=== PATIENT | female | born 1995 | race Caucasian/White ===

== ENCOUNTER → 2016-10-11 | Outpatient (CLI) | payer BC ==
--- NOTE | 2016-10-13 08:00 | DX ---
DEXA Bone Densitometry Technique: DEXA scan was performed on [employer] [facility] W Bone Densitometer Indication: Special screening examination Comparator Study: None Results: Lumbar Spine BMD: 1.132 T-score: +0.8 Total Hip (Right) BMD: 1.062 T-score: +1.0 Femoral Neck (Right) BMD: 0.890 T-score: +0.4 Total Hip (Left) BMD: 1.038 T-score: +0.8 Femoral Neck (Left) BMD: 0.907 T-score: +0.5 CONCLUSION: Normal bone mineral density ADDITIONAL COMMENTS: Consider repeating the study in 3-4 years of clinically indicated NOTE: The risk of osteoporotic fractures increases approximately twofold for each 1.0 SD decrease in T-score. The T-score represents the standard deviations from a young normal, same sex, reference po pulation. Low bone density is not the only risk factor for fracture. Clinical factors to consider include fall risk, previous osteoporotic fractures, family history of fractures, smoking, and low body weight. Patients who have an unexpectedly low BMD may need to be evaluated for secondary causes of low bone m ineral density. In comparing the present study to a prior study, lack of a significant increase or decrease in BMD ma y signify efficacy of the patient's present treatment. Bone mineral density measurements performed with densitometers produced by different manufacturers ar e not comparable. For the most reproducible BMD measurement, subsequent exams should be performed on the same densitometer.
== END ==
LOC: BMCIMAGING 15:14
PROVIDERS: ATTEND Family Medicine
DX: Z13.820 Encounter for screening for osteoporosis (principal); F50.9 Eating disorder, unspecified

== ENCOUNTER 2017-05-31 01:53 | Observation (INO) | payer BC ==
[2017-05-31] MEDS ORDERED: NS 1,000 ML IV ONE (02:12)
--- NOTE | 2017-05-31 02:17 | EDPHY ---
H & P Stated Complaint: last BM 1 week ago, saw pcp 05/30, 3 suppositories & mag citrate no results Time Seen by Provider: 05/31/17 02:04 HPI/ROS: Chief Complaint: Constipation HPI: 22-year-old woman with a history of irritable bowel syndrome, constipation and anorexia is presenting with abdominal distention and constipation. Patient states that her last normal bowel movement was a week ago. She did drink a bottle of magnesium citrate without relief. She is also use multiple glycerin suppositories without relief. She has a history of similar episode 3 years ago which resolved after several ER visits in using enemas. Denies any nausea or vomiting. States she has been having with her anorexia and has been decreasing her oral intake recently. ROS: 10 point Review of Systems is negative except as noted in the HPI. PMH: Constipation, anorexia nervosa Medications: Lamictal, naltrexone Social History: No smoking, no alcohol, no recreational drug use Family History: non-contributory Physical Exam: Gen: Awake, Alert, No Distress HEENT: Nose: no rhinorrhea Eyes: PERRLA, EOMI Mouth: Moist mucosa Neck: Supple, no JVD Chest: nontender, lungs clear to auscultation Heart: S1, S2 normal, no murmur Abd: Soft, distended, nontender, no guarding Back: no CVA tenderness, no midline tenderness Ext: no edema, non-tender Skin: no rash Neuro: CN II-XII intact, Sensation grossly intact, Strength 5/5 in bilateral upper and lower extremities - Personal History LMP (Females 10-55): Now Current Tetanus Diphtheria and Acellular Pertussis (TDAP): Yes Tetanus Vaccine Date: < 10 years - Medical/Surgical History Hx Asthma: Yes Hx Chronic Respiratory Disease: No Hx Diabetes: No Hx Cardiac Disease: No Hx Renal Disease: No Hx Cirrhosis: No Hx Alcoholism: No Hx HIV/AIDS: No Hx Splenectomy or Spleen Trauma: No Other PMH: eating disorder: anorexia, depression, anxiety, chronic sinusitis, chronic constipation - Social History Smoking Status: Never smoked Constitutional: Initial Vital Signs Temperature (C) 36.8 C 05/31/17 01:56 Heart Rate 73 05/31/17 01:56 Respiratory Rate 18 05/31/17 01:56 Blood Pressure 120/80 05/31/17 01:56 O2 Sat (%) 97 05/31/17 01:56 O2 Delivery Mode Room Air Allergies/Adverse Reactions: No Known Allergies Allergy (Unverified 02/29/16 13:36) Home Medications: Medication Instructions Recorded Hydroxycut Otc 05/31/17 LaMICtal 05/31/17 Linzess 05/31/17 Naltrexone HCl 05/31/17 Medical Decision Making - Diagnostics Imaging Results: Abdominal x-ray shows multiple air-fluid levels an dilated bowel consistent with obstruction. Imaging: I viewed and interpreted images myself ED Course/Re-evaluation: Abdominal x-ray shows multiple air-fluid levels consistent with obstruction. Will obtain a CT scan. Labs are normal. She is not . CT scan of the abdomen pelvis shows dilated GI system from the stomach down through to her rectum. There is anterior air-fluid levels. There is markedly dilated stomach. There is fluid in the small bowel. There is no point of obstruction. It is more of an ileus pattern per Dr. Rodriguez. Case discussed with Dr. Gates, general surgery. He is consulted. He will continue follow-up. He agrees with plan for admission to Medicine for further GI workup. He is wondering whether might be a here shows component to this. Case discussed with Dr. Valero, hospitalist. He will admit to his service. NG tube to be placed. - Data Points Laboratory Results: Laboratory Results 05/31/17 02:17 05/31/17 02:17 05/31/17 05/31/17 05/31/17 02:17 02:17 02:17 WBC 5.04 10^3/uL 10^3/uL (3.80-9.50) RBC 4.29 10^6/uL 10^6/uL (4.18-5.33) Hgb 13.9 g/dL g/dL (12.6-16.3) Hct 42.5 % % (38.0-47.0) MCV 99.1 fL fL (81.5-99.8) MCH 32.4 pg pg (27.9-34.1) MCHC 32.7 g/dL g/dL (32.4-36.7) RDW 13.2 % % (11.5-15.2) Plt Count 211 10^3/uL 10^3/uL (150-400) MPV 12.8 fL H fL (8.7-11.7) Neut % (Auto) 41.9 % % (39.3-74.2) Lymph % (Auto) 44.6 % % (15.0-45.0) [place] % (Auto) 10.1 % % (4.5-13.0) Eos % (Auto) 2.0 % % (0.6-7.6) Baso % (Auto) 1.2 % % (0.3-1.7) Nucleat RBC Rel Count 0.0 % % (0.0-0.2) Absolute Neuts (auto) 2.11 10^3/uL 10^3/uL (1.70-6.50) Absolute Lymphs (auto) 2.25 10^3/uL 10^3/uL (1.00-3.00) Absolute Monos (auto) 0.51 10^3/uL 10^3/uL (0.30-0.80) Absolute Eos (auto) 0.10 10^3/uL 10^3/uL (0.03-0.40) Absolute Basos (auto) 0.06 10^3/uL 10^3/uL (0.02-0.10) Absolute Nucleated RBC 0.00 10^3/uL 10^3/uL (0-0.01) Immature Gran % 0.2 % % (0.0-1.1) Immature Gran # 0.01 10^3/uL 10^3/uL (0.00-0.10) Sodium 143 mEq/L mEq/L (134-144) Potassium 3.9 mEq/L mEq/L (3.5-5.2) Chloride 103 mEq/L mEq/L (97-110) Carbon Dioxide 29 mEq/l mEq/l (22-31) Anion Gap 11 mEq/L mEq/L (8-16) BUN 13 mg/dL mg/dL (7-23) Creatinine 0.8 mg/dL mg/dL (0.6-1.0) Estimated GFR > 60 Glucose 84 mg/dL mg/dL (70-100) Calcium 9.6 mg/dL mg/dL (8.5-10.4) Beta HCG, Qual NEGATIVE Medications Given: Discontinued Medications Sodium Chloride (Ns) 1,000 mls @ 0 mls/hr IV ONCE ONE; Wide Open PRN Reason: Protocol Stop: 05/31/17 02:13 Last Admin: 05/31/17 02:20 Dose: 1,000 mls Departure - Departure Disposition: [facility] Acute Clinical Impression: Ileus Condition: Fair Referrals: Brigitte Montoya MD [Primary Care Provider] - As per Instructions
[2017-05-31 02:24] LABS: % IMMATURE GRANULYOCYTES 0.2 % (0.0-1.1); ABSOLUTE IMMATURE GRANULOCYTES 0.01 10^3/uL (0.00-0.10); ADD DIFF? NO; ADD MORPH? NO; ADD SCAN? NO; ATYPICAL LYMPHOCYTE FLAG 20 (0-99); FRAGMENT RBC FLAG 0 (0-99); HEMATOCRIT 42.5 % (38.0-47.0); HEMOGLOBIN 13.9 g/dL (12.6-16.3); LEFT SHIFT FLG 0 (0-99); LIPEMIA HEMOLYSIS FLAG 80 (0-99); MEAN CELL HEMOGLOBIN 32.4 pg (27.9-34.1); MEAN CELL HEMOGLOBIN CONCENTR. 32.7 g/dL (32.4-36.7); MEAN CELL VOLUME 99.1 fL (81.5-99.8); MEAN PLATELET VOLUME 12.8 fL (8.7-11.7); PLATELET CLUMPS FLAG 0 (0-99); PLATELET COUNT 211 10^3/uL (150-400); RED BLOOD CELL COUNT 4.29 10^6/uL (4.18-5.33); RED CELL DISTRIBUTION WIDTH 13.2 % (11.5-15.2)
[2017-05-31 02:40] LABS: ANION GAP 11 mEq/L (8-16); CALCIUM 9.6 mg/dL (8.5-10.4); CARBON DIOXIDE 29 mEq/l (22-31); CHLORIDE 103 mEq/L (97-110); CREATININE 0.8 mg/dL (0.6-1.0); GLOMERULAR FILTRATION RATE > 60; GLUCOSE 84 mg/dL (70-100); POTASSIUM 3.9 mEq/L (3.5-5.2); SODIUM 143 mEq/L (134-144)
[2017-05-31] MEDS ORDERED: IOPAMIDOL (ISOVUE-300) 100 ML BTL ONE (03:20)
[2017-05-31] MEDS ORDERED: LIDOCAINE 2% JELLY 5 ML TUBE ONE (05:02)
[2017-05-31] MEDS ORDERED: ONDANSETRON DISINTEGRATING 4 MG TAB PO PRN (05:20)
[2017-05-31] MEDS ORDERED: ACETAMINOPHEN 325 MG TAB PO PRN (05:20)
[2017-05-31] MEDS ORDERED: ONDANSETRON 4 MG/2 ML VIAL IVP PRN (05:20)
[2017-05-31] MEDS ORDERED: POLYETHYLENE GLYCOL 3350 17 GM PKT PO PRN (05:23)
[2017-05-31] MEDS ORDERED: MAGNESIUM HYDROXIDE 30 ML UDCUP PO PRN (05:23)
[2017-05-31] MEDS ORDERED: BISACODYL 10 MG SUPP PR PRN (05:23)
[2017-05-31] MEDS ORDERED: LACTULOSE 20 GM/30 ML UDCUP PO PRN (05:23)
--- NOTE | 2017-05-31 05:30 | PDGENHP ---
History and Physical - Chief Complaint Abdominal pain - History of Present Illness 22 yo F w/ hx of IBS-C and anorexia presents with abdominal pain and constipation. Patient reports she has been constipated for about 2 weeks with progressive abdominal pain. She has a history of IBS-C but has not had a significant flair or constipation requiring hospitalization since 2013. After that episode she saw Dr. Patiño with GI who diagnosed her with IBS-C and started her on Linzess, which she says helped for a long time. In terms of her anorexia, she was in treatment until 4 months ago. Since leaving treatment she admits to relapsing into many of her negative behaviors. These include food restriction, excessive exercise, and heavy use of stimulant- based weight loss supplements such as Hydroxycut and Slimquick. She most recently took these supplements on the day prior to admission. She tried mag citrate, Miralax, and suppositories with only minimal relief prior to coming to the ED. History Information - Allergies/Home Medication List Allergies/Adverse Reactions: No Known Allergies Allergy (Unverified 02/29/16 13:36) Home Medications: Hydroxycut Otc 05/31/17 [Last Taken Unknown] LaMICtal 05/31/17 [Last Taken Unknown] Linzess 05/31/17 [Last Taken Unknown] Naltrexone HCl 05/31/17 [Last Taken Unknown] I have personally reviewed and updated: family history, medical history - Past Medical History Additional medical history: Anorexia. IBS-C - Surgical History Reports: no pertinent surgical hx - Family History Positive for: cancer, CAD Additional family history: Aunt had eating disorder - Social History Smoking Status: Never smoked Alcohol Use: Occasionally Drug Use: Marijuana Review of Systems Review of Systems: ROS: 10pt was reviewed & negative except for what was stated in HPI & below Physical Exam Physical Exam: Temp Pulse Resp BP Pulse Ox 36.8 C 61 18 102/58 L 94 05/31/17 05:16 05/31/17 05:16 05/31/17 05:16 05/31/17 05:16 05/31/17 05:16 Lab Data & Imaging Review 05/31/17 02:17 05/31/17 02:17 WBC 5.04 10^3/uL (3.80-9.50) 05/31/17 02:17 RBC 4.29 10^6/uL (4.18-5.33) 05/31/17 02:17 Hgb 13.9 g/dL (12.6-16.3) 05/31/17 02:17 Hct 42.5 % (38.0-47.0) 05/31/17 02:17 MCV 99.1 fL (81.5-99.8) 05/31/17 02:17 MCH 32.4 pg (27.9-34.1) 05/31/17 02:17 MCHC 32.7 g/dL (32.4-36.7) 05/31/17 02:17 RDW 13.2 % (11.5-15.2) 05/31/17 02:17 Plt Count 211 10^3/uL (150-400) 05/31/17 02:17 MPV 12.8 fL (8.7-11.7) H 05/31/17 02:17 Neut % (Auto) 41.9 % (39.3-74.2) 05/31/17 02:17 Lymph % (Auto) 44.6 % (15.0-45.0) 05/31/17 02:17 [place] % (Auto) 10.1 % (4.5-13.0) 05/31/17 02:17 Eos % (Auto) 2.0 % (0.6-7.6) 05/31/17 02:17 Baso % (Auto) 1.2 % (0.3-1.7) 05/31/17 02:17 Nucleat RBC Rel Count 0.0 % (0.0-0.2) 05/31/17 02:17 Absolute Neuts (auto) 2.11 10^3/uL (1.70-6.50) 05/31/17 02:17 Absolute Lymphs (auto) 2.25 10^3/uL (1.00-3.00) 05/31/17 02:17 Absolute Monos (auto) 0.51 10^3/uL (0.30-0.80) 05/31/17 02:17 Absolute Eos (auto) 0.10 10^3/uL (0.03-0.40) 05/31/17 02:17 Absolute Basos (auto) 0.06 10^3/uL (0.02-0.10) 05/31/17 02:17 Absolute Nucleated RBC 0.00 10^3/uL (0-0.01) 05/31/17 02:17 Immature Gran % 0.2 % (0.0-1.1) 05/31/17 02:17 Immature Gran # 0.01 10^3/uL (0.00-0.10) 05/31/17 02:17 Sodium 143 mEq/L (134-144) 05/31/17 02:17 Potassium 3.9 mEq/L (3.5-5.2) 05/31/17 02:17 Chloride 103 mEq/L (97-110) 05/31/17 02:17 Carbon Dioxide 29 mEq/l (22-31) 05/31/17 02:17 Anion Gap 11 mEq/L (8-16) 05/31/17 02:17 BUN 13 mg/dL (7-23) 05/31/17 02:17 Creatinine 0.8 mg/dL (0.6-1.0) 05/31/17 02:17 Estimated GFR > 60 05/31/17 02:17 Glucose 84 mg/dL (70-100) 05/31/17 02:17 Calcium 9.6 mg/dL (8.5-10.4) 05/31/17 02:17 Beta HCG, Qual NEGATIVE 05/31/17 02:17 Imaging Review: CT Abdomen with diffuse distention of GI tract from stomach to rectum without discrete obstruction. Assessment & Plan Assessment: 22 yo F w/ IBS-C and anorexia presenting with abdominal pain and constipation, which I suspect is due to IBS-C flair and ileus related to stimulant-based weight loss supplements and other maladaptive behaviors related to anorexia nervosa. Plan: 1. Abdominal pain - Due to constipation in the setting of IBS-C and likely ileus from stimulant-based weight loss supplements. Patient had minimal relief at home despite trying several laxatives. She last took weight loss stimulants on the day prior to admission. CT of the abdomen showed diffuse distention of the GI tract without discrete obstruction. - Evaluated by general surgery in the ED; no surgical indication present and ok for aggressive bowel regimen - s/p IVF bolus in ED, will continue mIVF - Will schedule stimulant (Senna), softener (docusate), and give mineral oil enema x1 now - Bowel regimen panel ordered PRN - Clear liquid diet - If symptoms worsen, will need NPO and NG tube 2. IBS-C - Has not had a flair since 2013. Suspect this is closely related to mental health difficulties and anorexia nervosa. 3. Anorexia nervosa - Finished a treatment program 4 months ago and has returned to previous unhealthy behaviors since. These include food restriction, excessive exercise, and frequent weight loss supplements. - Will check Mg, Ph; BMP WNL - Some risk for refeeding syndrome although patient has been eating regular meals - Would likely benefit from mental health consultation, she follows with psychiatrist Dr. Lopez every 2-3 months Diet - Clear liquids Code - Full Ppx - Low risk, ambulate TID Dispo - Admit to observation
[2017-05-31] MEDS: NS 1,000 ML IV SCH ×2 (06:20→15:28)
[2017-05-31] MEDS: SENNOSIDES/DOCUSATE SODIUM TAB PO SCH ×2 (08:38→20:20)
[2017-05-31] MEDS: lamoTRIgine 100 MG TAB PO SCH ×2 (15:23→20:20)
[2017-05-31] MEDS: Linaclotide [Linzess] 72 MCG PO SCH (15:25)
--- NOTE | 2017-05-31 17:32 | ASMTCMCOM ---
CM Note CM Note Notes: Pt does have a history of anorexia, may benefit from SW visit. Otherwise no needs identified, anticipate will dc home independent when medically stable. CM available for any changes. Date Signed: 05/31/2017 05:32 PM Electronically Signed By:Luz Drew RN
[2017-06-01 07:58] VITALS: BP 91/61; PULSE 67; RESP 16; TEMP 98.3; O2SAT 96
--- NOTE | 2017-06-01 08:59 | PDDCSUM ---
Discharge Summary Discharge Summary: DISCHARGE DIAGNOSES: -Acute on chronic abdominal pain -Acute exacerbation of constipation predominant irritable bowel syndrome -Nausea vomiting HOSPITAL COURSE SUMMARY: this patient with irritable bowel syndrome constipation predominant, presented with severe abdominal pain, constipation, nausea vomiting. There is no evidence of any infection or bowel obstruction. She had been not hydrating well , had been doing some the aerobic exercise that was prolonged and beyond what she usually does, and had not been on a good diet for her syndrome. She also had been taking some stimulant weight loss preparations acquired Over the Internet. Were unable to relieve her pain or get her evaluated in the ER so the patient was observed here in the hospital overnight. She received further laxative IV hydration and did eventually evaluate her bowel feels better. She is now able to eat okay. She is stable for discharge to home. We did review that she will need to try and make sure she keeps well hydrated, keep with her recommended diet. She may need MiraLax or other laxatives at home. She does have Linzess at home which she will continue taking. She will follow up with Dr. Tesfaye Patiño. PENDING TEST RESULTS: None MEDICATION CHANGES: None FOLLOW-UP PLAN: With Dr. Tesfaye Patiño as needed Greater than 35 minutes bedside and care coordination time today
[2017-06-01] MEDS ORDERED: POLYETHYLENE GLYCOL 3350 17 GM PKT PO SCH (09:00)
[2017-06-01] MEDS ORDERED: NALTREXONE HCL 50 MG TAB PO SCH (09:00)
[2017-06-01] MEDS: lamoTRIgine 100 MG TAB PO SCH (09:56)
[2017-06-01] MEDS: SENNOSIDES/DOCUSATE SODIUM TAB PO SCH (09:57)
[2017-06-01] MEDS: Linaclotide [Linzess] 72 MCG PO SCH (10:33)
--- NOTE | 2017-06-01 17:27 | ASDISCHSUM ---
Discharge Information Plan Status:Home with No Needs Medically Cleared to Leave:06/01/2017 Discharge Date:06/01/2017 11:10 AM CM D/C Disposition:Home, Routine, Self-Care ADT D/C Disposition:Home, Routine, Self-Care Projected Discharge Date:06/01/2017 12:00 AM Transportation at D/C: Discharge Delay Reason: Follow-Up Date:06/01/2017 12:00 AM Discharge Slot: Final Diagnosis: Placement Information Patient Contact Information Contact Name:HARSH Relationship:Mother Address: Work Phone: City: [facility] Phone: State/[place] Prep Code: Email: Financial Information Financial Class:HMO and PPO Plans Primary Plan Desc: OUT OF STATE PPO Primary Plan Number:[id number] Secondary Plan Desc: Secondary Plan Number: Assessment Information BC CM Progress Note CM Note CM Note Notes: Pt does have a history of anorexia, may benefit from SW visit. Otherwise no needs identified, anticipate will dc home independent when medically stable. CM available for any changes. Date Signed: 05/31/2017 05:32 PM Electronically Signed By:Luz Drew RN Intervention Information
== END 2017-06-01 11:10 | disposition home or self-care (01) ==
LOC: INTOOBSV 04:12 → F3E 05:25
PROVIDERS: ADMIT Student in an Organized Health Care Education/Training Program; ATTEND Internal Medicine
DX: K58.1 Irritable bowel syndrome with constipation (principal); R11.2 Nausea with vomiting, unspecified; F50.01 Anorexia nervosa, restricting type
CPT/HCPCS: G0378; Q9967

== ENCOUNTER 2017-06-03 20:41 | Observation (INO) | payer BC ==
--- NOTE | 2017-06-03 21:35 | EDPHY ---
H & P Stated Complaint: Abd pain Source: Patient - Personal History LMP (Females 10-55): Now Current Tetanus/Diphtheria Vaccine: Yes Current Tetanus Diphtheria and Acellular Pertussis (TDAP): Yes Tetanus Vaccine Date: < 10 years - Medical/Surgical History Hx Asthma: Yes Hx Chronic Respiratory Disease: No Hx Diabetes: No Hx Cardiac Disease: No Hx Renal Disease: No Hx Cirrhosis: No Hx Alcoholism: No Hx HIV/AIDS: No Hx Splenectomy or Spleen Trauma: No Other PMH: eating disorder: anorexia, depression, anxiety, chronic sinusitis, chronic constipation - Social History Smoking Status: Never smoked HPI/ROS: CHIEF COMPLAINT: Abdominal pain, irritable bowel HISTORY OF PRESENT ILLNESS: Patient complains of ongoing abdominal pain and constipation. She has had a long history of irritable bowel syndrome with constipation predominant. She has recent admission to the hospital discharge home 24 hours later with symptomatic care. Diagnosed with ileus and constipation. Sent home on MiraLax. She is taking once daily as prescribed. She has had a bowel movement each morning. She felt well to this afternoon when "it activated again." She said she has been taking medications as prescribed with no deviation. She has not been taking any diuretics or weight loss pill since the morning of the 17 of June. No other associated complaints or modifying factors. REVIEW OF SYSTEMS: Ten systems reviewed and are negative unless otherwise noted in the HPI PAST MEDICAL HISTORY: IBS-C, anorexia PAST SURGICAL HISTORY: None SOCIAL HISTORY: Nonsmoker. Occasional marijuana use FAMILY HISTORY: Noncontributory EXAMINATION General Appearance: Alert, no distress Head: normocephalic, atraumatic Eyes: Pupils equal and round, no conjunctival pallor or injection ENT, Mouth: Mucous membranes moist Neck: Normal inspection, supple, non-tender Respiratory: Lungs are clear to auscultation Cardiovascular: Regular rate and rhythm Gastrointestinal: Bowel sounds are symmetric in all 4 quadrants. Abdomen is mildly firm. Mild tympany. Tender in all 4 quadrants. No guarding. Nonacute abdomen. Back: non-tender, no bony abnormalities Neurological: GCS 15. A&O, nonfocal, normal gait Skin: Warm and dry, no rash. No petechiae or purpura Extremities: Nontender, no pedal edema Psychiatric: Mood and affect normal DIFFERENTIAL DIAGNOSES: Including but not limited to irritable bowel, ileus, bowel obstruction, ischemic bowel, colitis, enteritis, obstipation, constipation MDM: 9:35 p.m. Abdominal pain the patient with irritable bowel constipation predominant. She has tenderness on examination but nonacute abdomen. Vital signs stable. I have ordered a plain films for comparison from 2 days ago. 10:20 p.m. Case discussed with Dr. Robles. Appearance of the plain film is no improvement over the CT scan performed 2 days ago. No worsening noted for 10:35 p.m. Case discussed with Dr. Ro. He agrees with proceeding with laboratory studies as the x-ray shoes no improvement over 2 days ago. Patient is agreeable with this. No acute distress. No vomiting. Vital signs stable. 11:30 p.m. Laboratory studies are all within normal limits. This includes negative lactic acid. She still complains of pain. She is nauseated but not vomiting. Dr. Ro will evaluate. 11:50 p.m. Patient has been evaluated by Dr. Ro. We are in agreement that she is not ready for discharge home. She is nauseated. She has not eaten today. She has an abnormal x-ray that is not improved in the past 3 days. Proceed with admission to the hospital. 12:40 a.m. Case discussed with Dr. Walsh. She will admit the patient to her service. She is admitted in stable condition to a medical-surgical bed, observation status. (Abel Hutton) Constitutional: Initial Vital Signs Temperature (C) 36.6 C 06/03/17 20:44 Heart Rate 80 06/03/17 20:44 Respiratory Rate 16 06/03/17 20:44 Blood Pressure 102/69 06/03/17 20:44 O2 Sat (%) 96 06/03/17 20:44 O2 Delivery Mode Room Air Allergies/Adverse Reactions: No Known Allergies Allergy (Unverified 06/03/17 20:46) Home Medications: Medication Instructions Recorded Herbals/Supplements -Info Only 1 each PO DAILY 05/31/17 Naltrexone HCl 50 mg PO DAILY 05/31/17 Ondansetron Odt [Zofran Odt 4 mg 4 mg PO Q4HRS PRN #10 tab 06/01/17 (*)] Levothyroxine [Synthroid 25 mcg 25 mcg PO DAILY06 06/04/17 (*)] Linaclotide [Linzess] 145 mcg PO BID PRN 06/04/17 lamoTRIgine [LamICTAL] 50 mg PO BID 06/04/17 - Data Points Laboratory Results: Laboratory Results 06/03/17 23:00 06/03/17 23:00 Medications Given: Acetaminophen (Tylenol) 650 mg PO Q4HRS PRN PRN Reason: Pain, Mild/Fever, Can Take PO Stop: 12/01/17 01:14 Last Admin: 06/04/17 08:50 Dose: 650 mg Dicyclomine HCl (Bentyl) 10 mg PO QID KALEY Stop: 12/01/17 19:59 Last Admin: 06/04/17 20:29 Dose: Not Given Lamotrigine (Lamictal) 50 mg PO BID KALEY Stop: 12/01/17 20:59 Last Admin: 06/04/17 20:26 Dose: 50 mg Levothyroxine Sodium (Synthroid) 25 mcg PO DAILY06 KALEY Stop: 12/01/17 16:14 Last Admin: 06/04/17 18:36 Dose: 25 mcg Senna/Docusate Sodium (Senokot-S) 1 - 2 tab PO BID KALEY PRN Reason: Protocol Stop: 12/01/17 08:59 Last Admin: 06/04/17 20:26 Dose: 2 tab Discontinued Medications Dicyclomine HCl (Bentyl) 10 mg PO EDNOW ONE Stop: 06/04/17 00:12 Last Admin: 06/04/17 00:24 Dose: 10 mg Diphenhydramine HCl (Benadryl Injection) 25 mg IVP EDNOW ONE Stop: 06/04/17 00:12 Last Admin: 06/04/17 00:25 Dose: 25 mg Sodium Chloride (Ns) 1,000 mls @ 125 mls/hr IV CONT KALEY Stop: 12/01/17 02:59 Last Admin: 06/04/17 13:40 Dose: 1,000 mls Magnesium Hydroxide (Milk Of Magnesia) 30 ml PO DAILY ONE PRN Reason: Protocol Stop: 06/04/17 19:56 Last Admin: 06/04/17 20:26 Dose: 30 ml Metoclopramide HCl (Reglan Injection) 10 mg IVP EDNOW ONE Stop: 06/04/17 00:12 Last Admin: 06/04/17 00:25 Dose: 10 mg Departure - Departure Disposition: [facility] Acute Clinical Impression: Irritable bowel syndrome with constipation Abdominal pain Qualifiers: Abdominal location: generalized Qualified Code(s): R10.84 - Generalized abdominal pain Condition: Good
[2017-06-03 23:15] LABS: % IMMATURE GRANULYOCYTES 0.3 % (0.0-1.1); ABSOLUTE IMMATURE GRANULOCYTES 0.02 10^3/uL (0.00-0.10); ADD DIFF? NO; ADD MORPH? NO; ADD SCAN? NO; ATYPICAL LYMPHOCYTE FLAG 10 (0-99); FRAGMENT RBC FLAG 0 (0-99); HEMATOCRIT 42.5 % (38.0-47.0); LEFT SHIFT FLG 0 (0-99); LIPEMIA HEMOLYSIS FLAG 80 (0-99); MEAN CELL HEMOGLOBIN 32.4 pg (27.9-34.1); MEAN CELL HEMOGLOBIN CONCENTR. 32.9 g/dL (32.4-36.7); MEAN CELL VOLUME 98.4 fL (81.5-99.8); MEAN PLATELET VOLUME 12.7 fL (8.7-11.7); PLATELET CLUMPS FLAG 0 (0-99); PLATELET COUNT 230 10^3/uL (150-400); RED BLOOD CELL COUNT 4.32 10^6/uL (4.18-5.33); RED CELL DISTRIBUTION WIDTH 13.1 % (11.5-15.2)
[2017-06-03 23:40] LABS: ALANINE AMINOTRANSFERASE 40 IU/L (9-52); ALBUMIN 4.8 g/dL (3.5-5.0); ALKALINE PHOSPHATASE 43 IU/L (38-126); ANION GAP 13 mEq/L (8-16); ASPARTATE AMINOTRANSFERASE 37 IU/L (14-46); BILIRUBIN,TOTAL 0.4 mg/dL (0.1-1.4); BILIRUBIN-UNCONJUGATED 0.4 mg/dL (0.0-1.1); CALCIUM 10.1 mg/dL (8.5-10.4); CARBON DIOXIDE 26 mEq/l (22-31); CHLORIDE 98 mEq/L (97-110); CREATININE 0.9 mg/dL (0.6-1.0); GLOMERULAR FILTRATION RATE > 60; GLUCOSE 102 mg/dL (70-100); SODIUM 137 mEq/L (134-144); TOTAL PROTEIN 7.8 g/dL (6.3-8.2)
[2017-06-04] MEDS ORDERED: DICYCLOMINE 10 MG CAP PO ONE (00:11)
[2017-06-04] MEDS ORDERED: METOCLOPRAMIDE 10 MG/2 ML VIAL IVP ONE (00:11)
[2017-06-04] MEDS ORDERED: ONDANSETRON 4 MG/2 ML VIAL IVP PRN (01:15)
[2017-06-04] MEDS ORDERED: ONDANSETRON DISINTEGRATING 4 MG TAB PO PRN (01:15)
[2017-06-04] MEDS ORDERED: ACETAMINOPHEN 325 MG TAB PO PRN (01:15)
[2017-06-04] MEDS: NS 1,000 ML IV SCH ×3 (01:30→13:40)
[2017-06-04] MEDS ORDERED: MAGNESIUM HYDROXIDE 30 ML UDCUP PO PRN (02:51)
[2017-06-04] MEDS ORDERED: POLYETHYLENE GLYCOL 3350 17 GM PKT PO PRN (02:51)
[2017-06-04] MEDS ORDERED: LACTULOSE 20 GM/30 ML UDCUP PO PRN (02:51)
[2017-06-04] MEDS ORDERED: BISACODYL 10 MG SUPP PR PRN (02:51)
--- NOTE | 2017-06-04 05:49 | GHP ---
[f rep st] HISTORY AND PHYSICAL DATE OF ADMISSION: 06/04/2017 CHIEF COMPLAINT: Abdominal pain. HISTORY OF PRESENT ILLNESS: A 22-year-old female with history of IBS-C, anorexia, who was recently d ischarged 06/01 for abdominal pain. She was admitted at that time for an acute flare of pain and con stipation. She was treated with laxatives at that time with improvement of symptoms. She returns to day due to increased abdominal distention. She has lower abdominal crampy pain. She is passing gas. Her last bowel movement was this morning. She has had mild nausea, no emesis. No fevers, chills, sweats. No diarrhea. No dysuria. She was last in treatment for anorexia at [facility] here in [place], which is a [facility] treatment center. She has been exercising 6 days a week up to an hour an d a half. She has been chewing gum more frequently and increased caffeine. She was taking weight lo ss supplements up until a few days ago. She sees a therapist twice a week, as well as a chief payroll clerk. She is wondering if she should readmit herself to this treatment center. REVIEW OF SYSTEMS: I completed a 10-point review of systems, negative except as noted in HPI. . PAST MEDICAL HISTORY: IBS-C, anorexia. FAMILY HISTORY: Colon cancer, heart disease. PAST SURGICAL HISTORY: None. ALLERGIES: No known drug allergies. MEDICATIONS: See medication reconciliation. SOCIAL HISTORY: Lives in [place] with a couple. Occasional alcohol. Occasional marijuana. 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 PHYSICAL EXAMINATION: VITAL SIGNS: Temperature 37.2 blood pressure 94/61, heart rate is 52, respira tion 14, 97% on room air. GENERAL: Lying in bed, tired appearing. HEENT PERRLA. Moist mucous memb ranes. CV: Alexandre, regular. No murmurs, gallops, or rubs. LUNGS: Clear to auscultation. Abdomen mildly distended. Mild lower abdominal pain. No rebound or guarding. Positive bowel sounds through out. : No Ta. MUSCULOSKELETAL: 5/5 upper and lower extremity strength. NEURO: 2 through 12 intact. PSYCH: Alert and oriented. Mildly flat affect. LABORATORIES: WBC 6, hemoglobin 14, hematocrit 42, platelets 230. Lactate 1.9. Sodium 137, potassi um 4, chloride 98, carbon dioxide 26, creatinine 0.9, glucose 102, calcium 10. LFTs within normal. Negative . IMAGING: Abdominal x-ray: Moderate retained stool is again noted through the transverse colon, kinsey g with diffuse colonic distention. Small bowel is less prominently dilated similar to previous. The re is marked distention of the stomach, unchanged. No free air. ASSESSMENT AND PLAN: 1. Acute on chronic abdominal pain: This is secondary to constipation. Suspect her food restrictio n and anorexia are contributing. Will monitor overnight. Treat supportively with intravenous fluids , bowel regimen. No evidence of free air on x-ray. Lactate normal. 2. Anorexia: The patient previously treated in a partial treatment center. I recommend that she fo llow up and probably readmit herself. She has a therapist as well as a chief payroll clerk. 3. Diet. clears. 4. Deep venous thrombosis prophylaxis, low risk. 5. Disposition. The patient warrants observation admission given acute on chronic abdominal pain wa rranting intravenous fluids and intravenous opioids. /[id number]/MODL
[2017-06-04] MEDS: SENNOSIDES/DOCUSATE SODIUM TAB PO SCH ×2 (08:48→20:26)
--- NOTE | 2017-06-04 16:24 | ASMTCMCOM ---
CM Note CM Note Notes: Chart reviewed, pt is a 22 y/o female admitted with abdominal pain. Pt was recently at [facility] on 05/31/17-06/01/17 for the same presenting issue. CM and pt discussed her eating disorder. Pt reports that she receives services through [facility] in [place] (a eating disorder facility). Pt reports having a therapist and a roving frame tender there. Pt reports that she is thinking about enrolling in their outpatient partial hospitalization program in early June. Pt reports that she is unable to enroll now due to her hectic work schedule. Pt spoke about feeling overwhelmed w/ a new job and a new apartment. Pt plans on seeing her therapist twice a week until she can get into the outpatient hospitalization program. Pt will most likely d/c independent w/out any needs. CM available for changes. Date Signed: 06/04/2017 04:23 PM Electronically Signed By:SHAWNA Charles
[2017-06-04] MEDS: LEVOTHYROXINE 25 MCG TAB PO SCH (18:36)
--- NOTE | 2017-06-04 19:54 | SOAPPROG ---
SOAP Progress Note Assessment/Plan: 1. abd pain -has IBS and eating disorder. Discussed both in general, debbie treatment options medical and psychological. Already involved in [facility] (discussed other local utritionist that works with eating disorder pts also), encouraged to FU and also to consider FODMAP, inpt 'partial' stays ([facility] in [place]), and FU with Dr Montgomery. Several web resources revwd with her and appreciate SW assistance also. Continue with liquids today, OK to advance in AM (says had omelette last stay without difficulty, calls it 'warm, comforting') . OK bentyl, says helped, revwd prn vs scheduled use and miralax daily. 2. Eating disorder -has outpt resources as above -labs OK -echo done, report pending -asymptomatic bradycardia and low BP PCP- [facility] FP FULL CODE DVT prophy- ambulation dispo- likely dc in AM if clinically improving and echo nl/VS stable Subjective: Pain OK with liquids today. Denies dizziness, palpitations, LH sensation, KEMP. No BM today, says has been having daily since last admission with miralax daily. Objective: Vital Signs Temp Pulse Resp BP Pulse Ox 99.1 F 51 L 14 110/68 97 06/04/17 16:00 06/04/17 16:00 06/04/17 16:00 06/04/17 16:00 06/04/17 16:00 06/03/17 06/04/17 06/05/17 11:59 11:59 11:59 Intake Total 30 Output Total 350 Balance -320 - Time Spent With Patient Time Spent With Patient: 40 mins (about 430-515 PM) - Pending Discharge Pending Discharge Within 24 Hours: Yes Pending Discharge Date: 06/06/17 Pending Discharge Time: 11:00 Physical Exam - Physical Exam General Appearance: WD/WN, alert, no apparent distress Respiratory: lungs clear, normal breath sounds, accessory muscle use Cardiac/Chest: normal peripheral pulses, bradycardia, No edema, No systolic murmur Abdomen: soft, other (mild ttp throughout), No distended, No guarding, No rebound Neuro/Psych: alert, normal mood/affect ICD10 Worksheet Patient Problems: Problems Problem Status Onset Abdominal pain Acute Irritable bowel syndrome with constipation Acute Ileus Acute
[2017-06-04] MEDS ORDERED: MAGNESIUM HYDROXIDE 30 ML UDCUP PO ONE (19:55)
[2017-06-04] MEDS: lamoTRIgine 25 MG TAB PO SCH (20:26)
[2017-06-04] MEDS: DICYCLOMINE 10 MG CAP PO SCH ×2 (20:26→20:29)
[2017-06-05] MEDS: LEVOTHYROXINE 25 MCG TAB PO SCH (06:01)
[2017-06-05] MEDS: DICYCLOMINE 10 MG CAP PO SCH ×2 (06:01→11:37)
[2017-06-05 07:40] VITALS: BP 88/59; PULSE 42; RESP 16; TEMP 97.7; O2SAT 95
[2017-06-05] MEDS: lamoTRIgine 25 MG TAB PO SCH (08:24)
[2017-06-05] MEDS: SENNOSIDES/DOCUSATE SODIUM TAB PO SCH (08:25)
--- NOTE | 2017-06-05 08:38 | ECHO ---
[id number] + + [address] : : [place] [address] : : [phone] + + Adult Echocardiographic Report + -+ :Name: MARLI DE LEÓN LStudy Date: 06/04/2017 11:34 AM BP: 85/56 mmHg : : Hospital Admission Number: [id number] : :: 1995 Gender: Female Height: 68 in : :Age: 22 yrs Race: WH Weight: 153 lb : :Reason For Study: bradycardia anorexic : : BSA: 1.8 meters 2: :History: bradycardia anorexic : + -+ MMode/2D Measurements & Calculations IVSd: 0.72 cm LVIDd: 4.4 cm FS: 30.6 % Ao root diam: 2.3 cm LVPWd: 0.81 cm LVIDs: 3.0 cm EDV(Teich): 86.9 ml ESV(Teich): 36.2 ml EF(Teich): 58.4 % Normal Measurement Values: + + :LVIDd (3.5-5.7cm) IVSd (0.6-1.1cm) LVPWd (0.6-1.1cm) Aortic Root (2.0-3.7cm)Left Atrium (1.5-4.0cm): :LV Vol(d) (76-115ml) LV Vol(s) (29-48ml) Ejec Fraction (50-65%)PV Mason (0.6- 1.2m/s) TV Mason (0.4-1.0m/s) : :MV E Mason (0.8-1.0m/s)MV A Mason (0.3-1.0m/s)LVOT Mason (0.7-1.2m/s) Asc Ao Mason ( 0.9-1.8m/s) : + + Doppler Measurements & Calculations MV E max mason: Ao V2 max: LV V1 max: PA V2 max: 99.2 cm/sec 136.5 cm/sec 107.1 cm/sec 88.6 cm/sec MV A max mason: Ao max PG: LV V1 max PG: PA max P.6 cm/sec 7.5 mmHg 4.6 mmHg 3.1 mmHg MV E/A: 3.2 MV dec time: 0.18 sec TR max mason: 206.8 cm/sec TR max P.1 mmHg RAP systole: 10.0 mmHg RVSP(TR): 27.1 mmHg Left Ventricle The left ventricle is normal in size and function. There is normal left ventricular wall thickness. Ejection Fraction = 58%. No regional wall motion abnormalities noted. Right Ventricle The right ventricle is normal in size and function. Atria The left atrial size is normal. Right atrial size is normal. Mitral Valve The mitral valve is normal in structure and function. There is no mitral regurgitation noted. Tricuspid Valve The tricuspid valve is normal in structure and function. There is mild tricuspid regurgitation. Right ventricular systolic pressure is 27mmHg. Aortic Valve The aortic valve is trileaflet. There is no aortic stenosis. There is no aortic insufficiency. Pulmonic Valve The pulmonic valve is not well visualized. Mild pulmonic valvular regurgitation. Great Vessels The aortic root is normal size. Pericardium/Pleural There is no pericardial effusion. Conclusion A two-dimensional transthoracic echocardiogram with pulsed and continuous Doppler was performed. (1) Left ventricular systolic ejection fraction was normal (55-60%) - normal wall motion (2) No left ventricular hypertrophy (3) No diastolic dysfunction (4) Normal right ventricular size and function (5) Normal atrial dimensions (6) Grossly normal mitral valve (7) Trileaflet aortic valve without sclerosis or insufficiency (8) Normal tricuspid valve with mild regurgitation - RVSP was grossly normal (9) Poor visualization of the pulmonic valve with mild insufficiency (10) No comparison echocardiograms Final Reading Physician: Kylie Connor signed on 06/05/2017 08:37 AM Ordering Physician: LORE ADAMS Performed By: Opal Daugherty
[2017-06-05] MEDS ORDERED: POLYETHYLENE GLYCOL 3350 17 GM PKT PO SCH (09:00)
[2017-06-05] MEDS ORDERED: NALTREXONE HCL 50 MG TAB PO SCH (09:00)
--- NOTE | 2017-06-05 14:04 | GDS ---
[f rep st] DISCHARGE SUMMARY SERVICE: [facility] Hospitalist. CONSULTATIONS: None. PROCEDURES: Echocardiogram: Normal. Abdominal x-ray: Retained stool, diffuse colonic distention. No free air. HISTORY AND PHYSICAL: Please see previously dictated note by Dr. Walsh. ADMISSION DIAGNOSES: Acute on chronic abdominal pain, chronic constipation. Anorexia/eating disorde r. DISCHARGE DIAGNOSES: Acute on chronic abdominal pain, chronic constipation. Anorexia/eating disorde r. HOSPITAL COURSE: By problem list: 1. Acute on chronic abdominal pain, constipation. History of IBS. She was admitted to the hospital for pain management and further evaluation. She was started on clear liquids and IV fluids. She wa s given Bentyl with good relief of her symptoms. Over the course of her stay, she was able to tolera te liquids, which advanced to full clears and then this morning eggs without any increased pain. She was continued on Bentyl, and she requested a prescription of this as an outpatient, as it definitely seemed to help. She was also given milk of magnesia and no other pain medications. I had a long di scussion with her about interaction between irritable bowel syndrome, eating disorder, chronic consti pation. I have suggested she discuss with [facility] white sugar syrup operator about a FODMAP diet and should also follow up with Dr. Patiño, Gastroenterology, as an outpatient (she has seen him before). Should continue with MiraLAX daily and Bentyl scheduled. Would like her to see [facility] as soon as p ossible along with her primary care provider at the [facility] family practice department . She is also considering returning to [place] to a partial inpatient procedure at [facility]. Appreciate Social Work discussion with her about options also and note that she does seem very motivated to follow up with providers, as advised. 2. Eating disorder. Please see above. 3. Bradycardia. She was noted to have heart rates into the upper 40s and 50s, mainly when she was s leeping. She denied any symptoms, including lightheadedness or dizziness. She has had a recent TSH drawn, which was normal. Electrolyte panels were normal. Echocardiogram was done for completeness a nd was also normal. A copy of the report was given to her to share with her primary care provider. I have reminded her of the importance of adequate hydration. I have discussed that if at any time sh e becomes dizzy, lightheaded, has chest pain, shortness of breath or other concerns, she should retur n immediately for re-evaluation (she denies all these symptoms currently). She has been ambulating i n the hospital completely asymptomatically. DISCHARGE MEDICATIONS: She should continue with naltrexone (prescribed by integrative psychiatrist f or her eating disorder). I have given her a prescription for Bentyl 10 mg to take 4 times a day sche duled, although I have discussed with her at some point, she can make that if needed. She should con tinue with MiraLAX daily and also with Linzess as needed. DISCHARGE INSTRUCTIONS: She should follow up with [facility] as soon as possible and consider re turning to the [facility] in [place]. She should follow up with Dr. Patiño in the next 1-2 weeks. She should follow up with [facility] primary care provider this week. /[id number]/MODL
--- NOTE | 2017-06-05 16:55 | ASDISCHSUM ---
Discharge Information Plan Status:Home with No Needs Medically Cleared to Leave: Discharge Date:06/05/2017 12:00 PM CM D/C Disposition:Home, Routine, Self-Care ADT D/C Disposition:Home, Routine, Self-Care Projected Discharge Date:06/05/2017 12:00 AM Transportation at D/C:Family Discharge Delay Reason: Follow-Up Date:06/05/2017 12:00 AM Discharge Slot: Final Diagnosis: Placement Information Patient Contact Information Contact Name:HARSH Relationship:Mother Address: Work Phone: City: [facility] Phone: State/[place] Code: Email: Financial Information Financial Class:HMO and PPO Plans Primary Plan Desc: OUT OF STATE PPO Primary Plan Number:[id number] Secondary Plan Desc: Secondary Plan Number: Assessment Information [facility] CM Progress Note CM Note CM Note Notes: Chart reviewed, pt is a 22 y/o female admitted with abdominal pain. Pt was recently at [facility] on 05/31/17-06/01/17 for the same presenting issue. CM and pt discussed her eating disorder. Pt reports that she receives services through [facility] in [place] (a eating disorder facility). Pt reports having a therapist and a associate professor of radiology there. Pt reports that she is thinking about enrolling in their outpatient partial hospitalization program in early June. Pt reports that she is unable to enroll now due to her hectic work schedule. Pt spoke about feeling overwhelmed w/ a new job and a new apartment. Pt plans on seeing her therapist twice a week until she can get into the outpatient hospitalization program. Pt will most likely d/c independent w/out any needs. CM available for changes. Date Signed: 06/04/2017 04:23 PM Electronically Signed By:SHAWNA Charles Intervention Information
== END 2017-06-05 12:00 | disposition home or self-care (01) ==
LOC: F3E 06-04 01:14
PROVIDERS: ADMIT Internal Medicine; ATTEND Internal Medicine
DX: K58.1 Irritable bowel syndrome with constipation (principal); R63.0 Anorexia; R00.1 Bradycardia, unspecified; F41.8 Other specified anxiety disorders
CPT/HCPCS: 74000; 93306; 96374; 96375; 99285; G0378; 80305; J1200; J2765

== ENCOUNTER → 2017-06-09 | Outpatient (CLI) | payer BC | LOC: FIMAGING 10:06 → EDSTATUS 10:07 | PROVIDERS: ATTEND Family Medicine | DX: K59.00 Constipation, unspecified (principal) ==

== ENCOUNTER 2017-12-08 06:41 | Emergency (ER) | payer BC ==
[2017-12-08] MEDS ORDERED: NS 1,000 ML IV ONE (07:33)
--- NOTE | 2017-12-08 07:35 | EDPHY ---
H & P Stated Complaint: RLQ abd pain since 1600 yesterday Time Seen by Provider: 12/08/17 07:30 HPI/ROS: CHIEF COMPLAINT: Abdominal pain HISTORY OF PRESENT ILLNESS: The patient presents the ED with complaints of abdominal pain. The pain is located in the right lower quadrant. It is been present since yesterday. She rates it is moderate to severe in nature. The patient does have a prior history of chronic abdominal pain but states this pain feels different. She was hospitalized for chronic abdominal pain last year. She was noted to be constipated at that point time. The patient denies prior history of abdominal surgery. She denies additional acute complaints. REVIEW OF SYSTEMS: A comprehensive 10 point review of systems is otherwise negative aside from elements mentioned in the history of present illness. Source: Patient Exam Limitations: No limitations - Personal History LMP (Females 10-55): Over 28 Days Ago Current Tetanus/Diphtheria Vaccine: Yes Current Tetanus Diphtheria and Acellular Pertussis (TDAP): Yes Tetanus Vaccine Date: < 10 years - Medical/Surgical History Hx Asthma: Yes Hx Chronic Respiratory Disease: No Hx Diabetes: No Hx Cardiac Disease: No Hx Renal Disease: No Hx Cirrhosis: No Hx Alcoholism: No Hx HIV/AIDS: No Hx Splenectomy or Spleen Trauma: No Other PMH: eating disorder: anorexia, depression, anxiety, chronic sinusitis, chronic constipation, IBS - Social History Smoking Status: Never smoked - Physical Exam Exam: General Appearance: Alert, no distress Eyes: Pupils equal and round no pallor or injection ENT, Mouth: Mucous membranes moist Respiratory: There are no retractions, lungs are clear to auscultation Cardiovascular: Regular rate and rhythm Gastrointestinal: Tenderness to palpation in the right lower quadrant, no peritoneal signs, minimal guarding Neurological: A&O, normal motor function, normal sensory exam, normal cranial nerves Skin: Warm and dry, no rashes Musculoskeletal: Neck is supple nontender Extremities: symmetrical, full range of motion Constitutional: Initial Vital Signs Temperature (C) 36.5 C 12/08/17 06:42 Heart Rate 71 12/08/17 06:42 Respiratory Rate 16 12/08/17 06:42 Blood Pressure 104/63 12/08/17 06:42 O2 Sat (%) 95 12/08/17 06:42 O2 Delivery Mode Room Air Allergies/Adverse Reactions: No Known Allergies Allergy (Verified 12/08/17 06:46) Home Medications: Medication Instructions Recorded Herbals/Supplements -Info Only 1 each PO DAILY 05/31/17 Naltrexone HCl 50 mg PO DAILY 05/31/17 Levothyroxine [Synthroid 25 mcg 25 mcg PO DAILY06 06/04/17 (*)] lamoTRIgine [LaMICtal] 50 mg PO BID 06/04/17 Acetaminophen [Tylenol 325mg (*)] 650 mg PO Q4HRS PRN tab 06/05/17 Medical Decision Making ED Course/Re-evaluation: The patient presents to the ED for evaluation of acute right lower quadrant pain. She does have a history of chronic abdominal pain. She was noted to be tender in the right lower quadrant. She had no significant leukocytosis, evidence of pancreatitis or hepatitis. Her urinalysis is negative. A CT scan of the abdomen pelvis was ordered as I did not feel that I could confidently exclude the diagnosis of appendicitis. A CT scan of the abdomen pelvis does demonstrate what appears to be hemorrhagic ovarian cyst and chronic constipation. Her appendix is normal. The patient received IV Toradol in the emergency department. She has been informed of the diagnosis of a hemorrhagic ovarian cyst. The patient will be discharged home with instructions to take ibuprofen for pain. She should continue management of her chronic constipation with her regular medications. Differential Diagnosis: Differential diagnosis considered includes appendicitis, perforation, obstruction, ectopic , pyelonephritis, UTI - Data Points Laboratory Results: Laboratory Results 12/08/17 07:07 12/08/17 07:07 12/08/17 12/08/17 12/08/17 07:07 07:07 07:07 WBC RBC Hgb Hct MCV MCH MCHC RDW Plt Count MPV Neut % (Auto) Lymph % (Auto) [place] % (Auto) Eos % (Auto) Baso % (Auto) Nucleat RBC Rel Count Absolute Neuts (auto) Absolute Lymphs (auto) Absolute Monos (auto) Absolute Eos (auto) Absolute Basos (auto) Absolute Nucleated RBC Immature Gran % Immature Gran # Sodium 140 mEq/L mEq/L (135-145) Potassium 4.8 mEq/L mEq/L (3.5-5.2) Chloride 106 mEq/L mEq/L (97-110) Carbon Dioxide 23 mEq/l mEq/l (22-31) Anion Gap 11 mEq/L mEq/L (8-16) BUN 19 mg/dL mg/dL (7-23) Creatinine 0.7 mg/dL mg/dL (0.6-1.0) Estimated GFR > 60 Glucose 86 mg/dL mg/dL (70-100) Calcium 9.2 mg/dL mg/dL (8.5-10.4) Total Bilirubin 0.3 mg/dL mg/dL (0.1-1.4) Conjugated Bilirubin 0.2 mg/dL mg/dL (0.0-0.5) Unconjugated Bilirubin 0.1 mg/dL mg/dL (0.0-1.1) AST 30 IU/L IU/L (14-46) ALT 35 IU/L IU/L (9-52) Alkaline Phosphatase 50 IU/L IU/L (38-126) Total Protein 6.7 g/dL g/dL (6.3-8.2) Albumin 4.2 g/dL g/dL (3.5-5.0) Lipase 138 IU/L IU/L (23-300) Beta HCG, Qual NEGATIVE Urine Color YELLOW Urine Appearance CLEAR Urine pH 7.0 (5.0-7.5) Ur Specific [place] 1.026 (1.002-1.030) Urine Protein NEGATIVE (NEGATIVE) Urine Ketones NEGATIVE (NEGATIVE) Urine Blood NEGATIVE (NEGATIVE) Urine Nitrate NEGATIVE (NEGATIVE) Urine Bilirubin NEGATIVE (NEGATIVE) Urine Urobilinogen NEGATIVE EU EU (0.2-1.0) Ur Leukocyte Esterase NEGATIVE (NEGATIVE) Urine Glucose NEGATIVE (NEGATIVE) 12/08/17 07:07 WBC 7.89 10^3/uL 10^3/uL (3.80-9.50) RBC 4.52 10^6/uL 10^6/uL (4.18-5.33) Hgb 14.7 g/dL g/dL (12.6-16.3) Hct 44.2 % % (38.0-47.0) MCV 97.8 fL fL (81.5-99.8) MCH 32.5 pg pg (27.9-34.1) MCHC 33.3 g/dL g/dL (32.4-36.7) RDW 13.4 % % (11.5-15.2) Plt Count 248 10^3/uL 10^3/uL (150-400) MPV 12.0 fL H fL (8.7-11.7) Neut % (Auto) 64.3 % % (39.3-74.2) Lymph % (Auto) 23.8 % % (15.0-45.0) [place] % (Auto) 7.5 % % (4.5-13.0) Eos % (Auto) 3.2 % % (0.6-7.6) Baso % (Auto) 0.9 % % (0.3-1.7) Nucleat RBC Rel Count 0.0 % % (0.0-0.2) Absolute Neuts (auto) 5.08 10^3/uL 10^3/uL (1.70-6.50) Absolute Lymphs (auto) 1.88 10^3/uL 10^3/uL (1.00-3.00) Absolute Monos (auto) 0.59 10^3/uL 10^3/uL (0.30-0.80) Absolute Eos (auto) 0.25 10^3/uL 10^3/uL (0.03-0.40) Absolute Basos (auto) 0.07 10^3/uL 10^3/uL (0.02-0.10) Absolute Nucleated RBC 0.00 10^3/uL 10^3/uL (0-0.01) Immature Gran % 0.3 % % (0.0-1.1) Immature Gran # 0.02 10^3/uL 10^3/uL (0.00-0.10) Sodium Potassium Chloride Carbon Dioxide Anion Gap BUN Creatinine Estimated GFR Glucose Calcium Total Bilirubin Conjugated Bilirubin Unconjugated Bilirubin AST ALT Alkaline Phosphatase Total Protein Albumin Lipase Beta HCG, Qual Urine Color Urine Appearance Urine pH Ur Specific [place] Urine Protein Urine Ketones Urine Blood Urine Nitrate Urine Bilirubin Urine Urobilinogen Ur Leukocyte Esterase Urine Glucose Medications Given: Discontinued Medications Sodium Chloride (Ns) 1,000 mls @ 0 mls/hr IV EDNOW ONE; Wide Open PRN Reason: Protocol Stop: 12/08/17 07:34 Last Admin: 12/08/17 07:43 Dose: 1,000 mls Ketorolac Tromethamine (Toradol) 30 mg IVP EDNOW ONE Stop: 12/08/17 08:23 Last Admin: 12/08/17 08:23 Dose: 30 mg Departure - Departure Disposition: Home, Routine, Self-Care Clinical Impression: Abdominal pain, Hemorrhagic cyst of right ovary Condition: Good Instructions: Ovarian Cyst (ED) Additional Instructions: 1. Take Ibuprofen or Motrin 600 mg by mouth three times a day. 2. Continue your regular medications for constipation. 3. Your CT scan does demonstrate evidence of a ovarian cyst is the cause of your pain today. I expect your symptoms to slowly improve over the next 1-2 days. Referrals: Brigitte Montoya MD [Primary Care Provider] - As per Instructions
[2017-12-08 07:37] LABS: PLATELET COUNT 248 10^3/uL (150-400)
[2017-12-08] MEDS ORDERED: IOPAMIDOL (ISOVUE-300) 100 ML BTL ONE (08:19)
[2017-12-08] MEDS ORDERED: KETOROLAC 30 MG/1 ML SDV ONE (08:21)
[2017-12-08] MEDS ORDERED: KETOROLAC 30 MG/1 ML SDV IVP ONE (08:22)
[2017-12-08 09:43] VITALS: BP 97/53; PULSE 69; RESP 18; TEMP 98.4; O2SAT 97
== END 2017-12-08 09:41 | disposition home or self-care (01) ==
DX: N83.201 Unspecified ovarian cyst, right side (principal); J45.909 Unspecified asthma, uncomplicated; E86.9 Volume depletion, unspecified
CPT/HCPCS: 96374; J1885; Q9967